=== PATIENT | female | born 1990 | race Caucasian/White ===

== ENCOUNTER 2021-03-15 08:48 | Outpatient (RCR) | payer SELFPAY ==
[2016-05-22 15:42] VITALS: BP 125/68
[~2021-03-15 08:48] MED LIST: LEXAPRO20 M1 PO; VYVANSE40 MG PO; ZOFRAN ODT8 M1 PO
== END 2021-03-15 17:00 | disposition home or self-care (01) ==
LOC: PT 08:48
DX: M54.40 Lumbago with sciatica, unspecified side (principal); M25.551 Pain in right hip; M25.552 Pain in left hip